=== PATIENT | female | born 1970 | race American Indian/Alaskan Native ===

== ENCOUNTER 2017-03-22 01:35 | Emergency (ER) | payer SELFPAY ==
[2017-03-22 03:34] LABS: Basophils % (Auto) 2.4 % (0.0-1.8); Eosinophils % (Auto) 4.6 % (0.0-4.3); Hematocrit 41.9 % (30.3-42.9); Hemoglobin 13.9 gm/dl (10.1-14.3); Mean Corpuscular HGB Conc 33 % (30-34); Mean Corpuscular Hemoglobin 33 pg (28-32); Mean Corpuscular Volume 101 fl (79-97); Platelet Count 205 K/mm3 (140-440); Red Blood Count 4.16 M/mm3 (3.65-5.03); White Blood Count 6.6 K/mm3 (4.5-11.0)
[2017-03-22 03:36] LABS: Anion Gap 15 mmol/L; Blood Urea Nitrogen 12 mg/dL (7-17); Calcium 8.7 mg/dL (8.4-10.2); Carbon Dioxide 26 mmol/L (22-30); Chloride 99.8 mmol/L (98-107); Glucose 87 mg/dL (65-100); Potassium 3.9 mmol/L (3.6-5.0); Sodium 137 mmol/L (137-145)
--- NOTE | 2017-03-22 05:58 | Emergency Department Report ---
ED Extremity Problem HPI - General Chief complaint: Extremity Problem,Nontraumatic Stated complaint: PAIN/SWOLLEN LEFT LEG Time Seen by Provider: 03/22/17 05:29 Source: patient Mode of arrival: Ambulatory Limitations: No Limitations - History of Present Illness Initial comments: Patient comes into the ER today with complaints of left lower leg pain and swelling for the past 4 days. Patient denies any injury. Patient states that the pain and swelling seems to have started behind her left knee and has progressed to her left lower leg. Patient states the pain and swelling is worse the longer she is standing on her feet. Patient states the swelling doesn 't subside when she elevates her leg. Patient denies any chest pain, shortness of breath, fever, body aches. MD Complaint: extremity pain, extremity swelling Severity scale (0 -10): 4 - Related Data Previous Rx's Medication Instructions Recorded Last Taken Type Acetaminophen/Codeine [Tylenol 1 tab PO Q6H PRN #20 tab 03/22/17 Unknown Rx /Codeine # 3 tab] predniSONE [Deltasone] 20 mg PO QDAY #18 tab 03/22/17 Unknown Rx Allergies Allergy/AdvReac Type Severity Reaction Status Date / Time No Known Allergies Allergy Verified 03/22/17 04:13 ED Review of Systems ROS: Stated complaint: PAIN/SWOLLEN LEFT LEG Other details as noted in HPI Constitutional: denies: chills, fever Eyes: denies: eye pain, eye discharge, vision change ENT: denies: ear pain, throat pain Respiratory: denies: cough, shortness of breath, wheezing Cardiovascular: denies: chest pain, palpitations Endocrine: no symptoms reported Gastrointestinal: denies: abdominal pain, nausea, diarrhea Genitourinary: denies: urgency, dysuria, discharge Musculoskeletal: joint swelling (left posterior knee), arthralgia. denies: back pain Skin: denies: rash, lesions Neurological: denies: headache, weakness, paresthesias Psychiatric: denies: anxiety, depression Hematological/Lymphatic: denies: easy bleeding, easy bruising ED Past Medical Hx - Past Medical History Previous Medical History?: No - Surgical History Past Surgical History?: Yes Additional Surgical History: Hernia - Social History Smoking Status: Current Every Day Smoker Substance Use Type: Alcohol - Medications Home Medications: Home Medications Medication Instructions Recorded Confirmed Last Taken Type Acetaminophen/Codeine [Tylenol 1 tab PO Q6H PRN #20 tab 03/22/17 Unknown Rx /Codeine # 3 tab] predniSONE [Deltasone] 20 mg PO QDAY #18 tab 03/22/17 Unknown Rx ED Physical Exam - General Limitations: No Limitations General appearance: alert, in no apparent distress - Head Head exam: Present: atraumatic, normocephalic - Eye Eye exam: Present: normal appearance - ENT ENT exam: Present: mucous membranes moist - Neck Neck exam: Present: normal inspection - Respiratory Respiratory exam: Present: normal lung sounds bilaterally. Absent: respiratory distress, wheezes, rales, rhonchi, accessory muscle use, decreased breath sounds - Cardiovascular Cardiovascular Exam: Present: regular rate, normal rhythm, normal heart sounds. Absent: systolic murmur, diastolic murmur, rubs, gallop - GI/Abdominal GI/Abdominal exam: Present: soft, normal bowel sounds. Absent: distended, tenderness, guarding - Extremities Exam Extremities exam: Present: tenderness (tenderness to left posterior knee), normal capillary refill, joint swelling (left posterior knee swelling), other ( patient does have palpable round swelling to left posterior knee consistent with Jalloh's cyst. There is no redness, no induration noted. Patient does have left lower extremity generalized swelling to ankle. Distal pulses intact and full.). Absent: full ROM (Limited range of motion of left knee secondary to pain and swelling to flexion), calf tenderness - Back Exam Back exam: Present: normal inspection, full ROM. Absent: tenderness - Neurological Exam Neurological exam: Present: alert, oriented X3, CN II-XII intact - Psychiatric Psychiatric exam: Present: normal affect, normal mood - Skin Skin exam: Present: warm, dry, intact, normal color. Absent: rash ED Course Vital Signs 03/22/17 04:13 Temperature 98.9 F Pulse Rate 65 Respiratory 18 Rate Blood Pressure 159/99 [Right] O2 Sat by Pulse 100 Oximetry ED Medical Decision Making - Lab Data Result diagrams: 03/22/17 02:53 03/22/17 02:53 Lab Results 03/22/17 03/22/17 03/22/17 Range/Units 02:53 02:53 02:53 WBC 6.6 (4.5-11.0) K/mm3 RBC 4.16 (3.65-5.03) M/mm3 Hgb 13.9 (10.1-14.3) gm/dl Hct 41.9 (30.3-42.9) % MCV 101 H (79-97) fl MCH 33 H (28-32) pg MCHC 33 (30-34) % RDW 15.0 (13.2-15.2) % Plt Count 205 (140-440) K/mm3 Lymph % (Auto) 47.4 H (13.4-35.0) % Jerauld % (Auto) 7.6 H (0.0-7.3) % Eos % (Auto) 4.6 H (0.0-4.3) % Baso % (Auto) 2.4 H (0.0-1.8) % Lymph # 3.1 (1.2-5.4) K/mm3 Jerauld # 0.5 (0.0-0.8) K/mm3 Eos # 0.3 (0.0-0.4) K/mm3 Baso # 0.2 H (0.0-0.1) K/mm3 Seg Neutrophils % 38.0 L (40.0-70.0) % Seg Neutrophils # 2.5 (1.8-7.7) K/mm3 D-Dimer < 135.00 (0-234) ng/mlDDU Potassium 3.9 (3.6-5.0) mmol/L Chloride 99.8 (98-107) mmol/L Carbon Dioxide 26 (22-30) mmol/L Anion Gap 15 mmol/L BUN 12 (7-17) mg/dL Creatinine 0.8 (0.7-1.2) mg/dL Estimated GFR > 60 ml/min BUN/Creatinine Ratio 15.00 % Glucose 87 (65-100) mg/dL Calcium 8.7 (8.4-10.2) mg/dL HCG, Quant (0-4) mIU/mL 03/22/17 Range/Units 02:53 WBC (4.5-11.0) K/mm3 RBC (3.65-5.03) M/mm3 Hgb (10.1-14.3) gm/dl Hct (30.3-42.9) % MCV (79-97) fl MCH (28-32) pg MCHC (30-34) % RDW (13.2-15.2) % Plt Count (140-440) K/mm3 Lymph % (Auto) (13.4-35.0) % Jerauld % (Auto) (0.0-7.3) % Eos % (Auto) (0.0-4.3) % Baso % (Auto) (0.0-1.8) % Lymph # (1.2-5.4) K/mm3 Jerauld # (0.0-0.8) K/mm3 Eos # (0.0-0.4) K/mm3 Baso # (0.0-0.1) K/mm3 Seg Neutrophils % (40.0-70.0) % Seg Neutrophils # (1.8-7.7) K/mm3 D-Dimer (0-234) ng/mlDDU Potassium (3.6-5.0) mmol/L Chloride (98-107) mmol/L Carbon Dioxide (22-30) mmol/L Anion Gap mmol/L BUN (7-17) mg/dL Creatinine (0.7-1.2) mg/dL Estimated GFR ml/min BUN/Creatinine Ratio % Glucose (65-100) mg/dL Calcium (8.4-10.2) mg/dL HCG, Quant < 2 (0-4) mIU/mL - Medical Decision Making Patient is nontoxic and hemodynamically stable. Lab results reviewed and discussed with patient room. Patient has a normal d-dimer and clinical exam more consistent with Jalloh's cyst. Patient was given an instructed on use of crutches here in the ER to limit any weightbearing for comfort. I have instructed patient to elevate her leg over the next couple days and I will start patient on some medications to help with inflammation and swelling. I will refer patient to orthopedics for further evaluation and treatment of her condition. Patient is in agreement with treatment plan and patient is stable for discharge. Critical care attestation.: If time is entered above; I have spent that time in minutes in the direct care of this critically ill patient, excluding procedure time. ED Disposition Clinical Impression: Jalloh's cyst of knee, Left leg pain Disposition: TO HOME OR SELFCARE Is pt being admited?: No Does the pt Need Aspirin: No Condition: Good Instructions: Crutch Instructions (ED), Jalloh's Cyst (ED) Prescriptions: Acetaminophen/Codeine [Tylenol /Codeine # 3 tab] 1 tab PO Q6H PRN #20 tab PRN Reason: Pain predniSONE [Deltasone] 20 mg PO QDAY #18 tab Referrals: PRIMARY CARE, [Primary Care Provider] - 3-5 Days DELONTE DERAS MD [Staff Physician] - 3-5 Days Forms: Work/School Release Form(ED) Time of Disposition: 06:01
[2017-03-22] MEDS ORDERED: NORCO 5/325 PO ONE (06:06)
[2017-03-22 06:17] VITALS: BP 151/98
== END 2017-03-22 06:17 | disposition home or self-care (01) ==
LOC: ED 01:35
DX: M71.22 Synovial cyst of popliteal space [Baker], left knee (principal); M79.605 Pain in left leg; F17.200 Nicotine dependence, unspecified, uncomplicated
CPT/HCPCS: 36415; 80048; 84702; 85025; 85379; 99283

== ENCOUNTER 2019-03-02 09:12 | Emergency (ER) | payer OTHER ==
[2019-03-02 09:29] VITALS: BP 153/90
[2019-03-02] MEDS ORDERED: IBUPROFEN PO ONE (10:26)
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
== END 2019-03-02 12:14 | disposition home or self-care (01) ==
LOC: ED 09:12
DX: S16.1XXA Strain of muscle, fascia and tendon at neck level, initial encounter (principal); S39.012A Strain of muscle, fascia and tendon of lower back, initial encounter; Z79.1 Long term (current) use of non-steroidal anti-inflammatories (NSAID); F17.200 Nicotine dependence, unspecified, uncomplicated; V87.7XXA Person injured in collision between other specified motor vehicles (traffic), initial encounter; Y93.89 Activity, other specified; Y92.488 Other paved roadways as the place of occurrence of the external cause; Y99.8 Other external cause status
CPT/HCPCS: 72040; 72100; 99283

== ENCOUNTER 2019-05-15 07:32 | Emergency (ER) | payer SELFPAY ==
[2019-05-15 07:37] VITALS: BP 144/84
--- NOTE | 2019-05-15 08:26 | Emergency Department Report ---
ED Lower Extremity HPI - General Chief Complaint: Extremity Injury, Lower Stated Complaint: LEFT FOOT HEAL PAIN Time Seen by Provider: 05/15/19 08:21 Source: patient Mode of arrival: Ambulatory Limitations: No Limitations - History of Present Illness Initial Comments: Terra is a very pleasant 49-year-old female who injured her left heel last night. She stomped on her left foot with mild heel pain at the bottom of the heel. She denies fever. Denies shortness of breath no other injuries. MD Complaint: foot injury -: Sudden, Last night Injury: Foot: Left Type of Injury: blunt Place: home Severity: mild Worsens With: weight bearing Context: direct blow - Related Data Previous Rx's Medication Instructions Recorded Last Taken Type Acetaminophen/Codeine [Tylenol 1 tab PO Q6H PRN #20 tab 03/22/17 Unknown Rx /Codeine # 3 tab] predniSONE [Deltasone] 20 mg PO QDAY #18 tab 03/22/17 Unknown Rx Ibuprofen [Motrin 800 MG tab] 800 mg PO Q8HR PRN #10 tablet 03/02/19 Unknown Rx methOCARBAMOL [Robaxin TAB] 500 mg PO Q6H PRN #14 tablet 03/02/19 Unknown Rx traMADol [Ultram] 50 mg PO Q6HR PRN #12 tablet 03/02/19 Unknown Rx Ibuprofen [Motrin 800 MG tab] 800 mg PO TID 5 Days #15 tablet 05/15/19 Unknown Rx Allergies Allergy/AdvReac Type Severity Reaction Status Date / Time No Known Allergies Allergy Verified 03/02/19 09:28 ED Review of Systems ROS: Stated complaint: LEFT FOOT HEAL PAIN Other details as noted in HPI Constitutional: denies: fever, malaise Skin: denies: rash, lesions Neurological: denies: numbness, paresthesias ED Past Medical Hx - Past Medical History Previous Medical History?: Yes Additional medical history: Abd hernia - Surgical History Past Surgical History?: Yes Additional Surgical History: Abd. Hernia - Social History Smoking Status: Current Every Day Smoker Substance Use Type: Alcohol - Medications Home Medications: Home Medications Medication Instructions Recorded Confirmed Last Taken Type Acetaminophen/Codeine [Tylenol 1 tab PO Q6H PRN #20 tab 03/22/17 Unknown Rx /Codeine # 3 tab] predniSONE [Deltasone] 20 mg PO QDAY #18 tab 07/23/17 Unknown Rx Ibuprofen [Motrin 800 MG tab] 800 mg PO Q8HR PRN #10 tablet 03/02/19 Unknown Rx methOCARBAMOL [Robaxin TAB] 500 mg PO Q6H PRN #14 tablet 03/02/19 Unknown Rx traMADol [Ultram] 50 mg PO Q6HR PRN #12 tablet 03/02/19 Unknown Rx Ibuprofen [Motrin 800 MG tab] 800 mg PO TID 5 Days #15 tablet 05/15/19 Unknown Rx ED Physical Exam - General Limitations: No Limitations General appearance: alert, in no apparent distress - Head Head exam: Present: atraumatic, normocephalic - Extremities Exam Extremities exam: Present: normal inspection, full ROM, normal capillary refill, other (intact pedal pulse). Absent: tenderness, pedal edema, joint swelling - Expanded Lower Extremity Exam Left Ankle exam: Present: normal inspection, full ROM. Absent: tenderness, swelling Foot/Toe exam: Present: normal inspection, full ROM. Absent: tenderness, swelling, abrasion, laceration, ecchymosis, deformity, crepidus Neuro vascular tendon exam: Present: no vascular compromise ED Course Vital Signs 05/15/19 07:34 Temperature 98.5 F Pulse Rate 72 Respiratory 18 Rate Blood Pressure 144/84 O2 Sat by Pulse 99 Oximetry ED Lower Extremity MDM - Medical Decision Making Left foot heel contusion: Radiographs are necessary at this time. Normal physical exam. I do not suspect a calcaneal fracture or foot dislocation. I recommended ice and ibuprofen. I prescribed ibuprofen 800 mg tablets. Referred to hr representative as needed. Critical care attestation.: If time is entered above; I have spent that time in minutes in the direct care of this critically ill patient, excluding procedure time. ED Disposition Clinical Impression: Contusion of left foot Disposition: DC-01 TO HOME OR SELFCARE Is pt being admited?: No Does the pt Need Aspirin: No Condition: Stable Instructions: Foot Contusion (ED) Prescriptions: Ibuprofen [Motrin 800 MG tab] 800 mg PO TID 5 Days #15 tablet Referrals: NESSA MCCLOUD DPM [Staff Physician] - as needed Forms: Work/School Release Form(ED)
== END 2019-05-15 08:34 | disposition home or self-care (01) ==
LOC: ED 07:32
DX: S90.32XA Contusion of left foot, initial encounter (principal); Z98.890 Other specified postprocedural states; Z79.899 Other long term (current) drug therapy; F17.200 Nicotine dependence, unspecified, uncomplicated; X58.XXXA Exposure to other specified factors, initial encounter; Y93.89 Activity, other specified; Y92.098 Other place in other non-institutional residence as the place of occurrence of the external cause; Y99.8 Other external cause status
CPT/HCPCS: 99282